=== PATIENT | female | born 1975 | race African-American/Black ===

== ENCOUNTER 2023-06-19 14:19 | Inpatient (IN) | payer OTHER ==
[2023-06-19 16:00] VITALS: BMI 19.0
[2023-06-20] MEDS ORDERED: BENZONATATE 200 MG CAPSULE PO PRN (04:35)
[2023-06-20] MEDS ORDERED: MAGNESIUM HYDROX 2400MG/30ML ORAL SUSPENSION 30 ML CUP PO PRN (04:35)
[2023-06-20] MEDS ORDERED: NALOXONE HCL (KLOXXADO) 8 MG SPRAY NS PRN (04:35)
[2023-06-20] MEDS ORDERED: POLYETHYLENE GLYCOL (HEALTHYLAX) 3350 17 GM PACKET PO PRN (04:35)
[2023-06-20] MEDS ORDERED: NALOXONE HCL 0.4 MG/ML VIAL IM PRN (04:35)
[2023-06-20] MEDS ORDERED: AMMONIUM LACTATE 12% LOTION 225 GM BOTTLE TP PRN (04:35)
[2023-06-20] MEDS ORDERED: IBUPROFEN 400 MG TABLET (FP) PO PRN (04:35)
[2023-06-20] MEDS ORDERED: MAG HYDROX/AL HYDROX/SIMETH 30 ML UNIT-DOSE CUP PO PRN (04:35)
[2023-06-20] MEDS ORDERED: guaiFENesin 600 MG TABLET.ER (FP) PO PRN (04:35)
[2023-06-20] MEDS ORDERED: LOPERAMIDE HCL 2 MG CAPSULE PO PRN (04:35)
[2023-06-20] MEDS ORDERED: COLLOIDAL OATMEAL 1 BAR EACH TP PRN (04:35)
[2023-06-20] MEDS ORDERED: BENZOCAINE/MENTHOL (CHLORASEPTIC ) LOZENGE MM PRN (04:35)
[2023-06-20] MEDS ORDERED: TUBERCULIN PPD 5 TU/0.1ML SYRINGE (IN PATIENT USE ONLY) ID ONE (05:45)
[2023-06-20] MEDS ORDERED: TUBERCULIN PPD 5 TU/0.1ML VIAL ID ONE (07:05)
[2023-06-20] MEDS: PRENATAL VITAMINS W/ FOLIC ACID TABLET (FP) PO SCH (09:58)
[2023-06-20 11:26] LABS: HEMATOCRIT 31.1 % (32.4-45.2); HEMOGLOBIN 10.5 GM/dL (10.7-15.3); MCH 31.9 pg (25.7-33.7); MCHC 33.8 g/dl (32.0-36.0); MEAN CELL VOLUME 94.4 fl (80-96); MEAN PLT VOLUME 7.9 fl (7.5-11.1); PLATELET COUNT 196 10^3/uL (134-434); RBC 3.29 M/mm3 (3.60-5.2); WHITE BLOOD COUNT 3.4 K/mm3 (4.0-10.0)
[2023-06-20 11:48] LABS: POTASSIUM 4.2 mmol/L (3.5-5.1)
[2023-06-20 11:50] LABS: ALBUMIN 2.7 g/dl (3.4-5.0); CALCIUM 8.1 mg/dL (8.5-10.1)
[2023-06-20 11:51] LABS: BLOOD UREA NITROGEN 16.6 mg/dL (7-18)
[2023-06-20 11:53] LABS: CREATININE 0.6 mg/dL (0.55-1.3)
[2023-06-20 11:55] LABS: BILIRUBIN,TOTAL 0.3 mg/dL (0.2-1)
[2023-06-20] MEDS: MELATONIN 5 MG TABLETS PO SCH (21:53)
[2023-06-20] MEDS: THIAMINE HCL 100 MG TABLET (FP) PO SCH (21:53)
[2023-06-21] MEDS: PRENATAL VITAMINS W/ FOLIC ACID TABLET (FP) PO SCH (09:50)
[2023-06-21 12:07] LABS: EPI CELLS >36 /uL (0-25.1); HYALINE CASTS 2 /uL (0-3.1); PH,URINE 5.5 (5.0-8.0); URINE APPEARANCE CLOUDY; URINE BACTERIA 392 /uL (0-1359); URINE BILIRUBIN NEGATIVE (NEGATIVE); URINE COLOR YELLOW; URINE GLUCOSE (UA) NEGATIVE (NEGATIVE); URINE KETONE NEGATIVE (NEGATIVE); URINE LEUK ESTERASE 1+ (NEGATIVE); URINE NITRITE NEGATIVE (NEGATIVE); URINE PROTEIN NEGATIVE (NEGATIVE); URINE RBC 3 /uL (0-23.9); URINE UROBILINOGEN 0.2 mg/dL (0.2-1.0); URINE WBC 84 /uL (0-25.8)
[2023-06-21] MEDS: OLANZapine 10 MG TABLET PO SCH (13:31)
[2023-06-21] MEDS: MELATONIN 5 MG TABLETS PO SCH (21:17)
[2023-06-21] MEDS: THIAMINE HCL 100 MG TABLET (FP) PO SCH (21:17)
[2023-06-22] MEDS: OLANZapine 10 MG TABLET PO SCH (09:58)
[2023-06-22] MEDS: PRENATAL VITAMINS W/ FOLIC ACID TABLET (FP) PO SCH (09:59)
[2023-06-22] MEDS: MELATONIN 5 MG TABLETS PO SCH (21:37)
[2023-06-22] MEDS: THIAMINE HCL 100 MG TABLET (FP) PO SCH (21:37)
[2023-06-22] MEDS: ACETAMINOPHEN 325 MG TABLET (FP) PO PRN (21:37)
[2023-06-23 07:14] VITALS: RESP 18
[2023-06-23] MEDS: ACETAMINOPHEN 325 MG TABLET (FP) PO PRN (08:57)
[2023-06-23] MEDS: OLANZapine 10 MG TABLET PO SCH (10:05)
[2023-06-23] MEDS: PRENATAL VITAMINS W/ FOLIC ACID TABLET (FP) PO SCH (10:05)
[2023-06-23] MEDS: THIAMINE HCL 100 MG TABLET (FP) PO SCH (21:19)
[2023-06-23] MEDS: MELATONIN 5 MG TABLETS PO SCH (21:19)
[2023-06-23] MEDS: IBUPROFEN 600 MG TABLET (FP) PO PRN (22:29)
[2023-06-24] MEDS: OLANZapine 10 MG TABLET PO SCH (09:29)
[2023-06-24] MEDS: PRENATAL VITAMINS W/ FOLIC ACID TABLET (FP) PO SCH (09:29)
[2023-06-24] MEDS: MELATONIN 5 MG TABLETS PO SCH (21:34)
[2023-06-24] MEDS: THIAMINE HCL 100 MG TABLET (FP) PO SCH (21:34)
[2023-06-25] MEDS: PRENATAL VITAMINS W/ FOLIC ACID TABLET (FP) PO SCH (09:26)
[2023-06-25] MEDS: OLANZapine 10 MG TABLET PO SCH (09:26)
[2023-06-25] MEDS: MELATONIN 5 MG TABLETS PO SCH (21:19)
[2023-06-25] MEDS: THIAMINE HCL 100 MG TABLET (FP) PO SCH (21:19)
[2023-06-26] MEDS: IBUPROFEN 600 MG TABLET (FP) PO PRN (08:45)
[2023-06-26] MEDS: OLANZapine 10 MG TABLET PO SCH (09:33)
[2023-06-26] MEDS: PRENATAL VITAMINS W/ FOLIC ACID TABLET (FP) PO SCH (09:33)
[2023-06-26] MEDS: MINERAL OIL/PET HY-PHL TOPICAL OINTMENT 454 GM JAR TP SCH (21:32)
[2023-06-26] MEDS: MELATONIN 5 MG TABLETS PO SCH (21:34)
[2023-06-26] MEDS: THIAMINE HCL 100 MG TABLET (FP) PO SCH (21:34)
[2023-06-27] MEDS: PRENATAL VITAMINS W/ FOLIC ACID TABLET (FP) PO SCH (09:38)
[2023-06-27] MEDS: OLANZapine 10 MG TABLET PO SCH (09:39)
[2023-06-27] MEDS: MINERAL OIL/PET HY-PHL TOPICAL OINTMENT 454 GM JAR TP SCH ×2 (09:39→21:37)
[2023-06-27] MEDS: MELATONIN 5 MG TABLETS PO SCH (21:37)
[2023-06-27] MEDS: THIAMINE HCL 100 MG TABLET (FP) PO SCH (21:37)
[2023-06-28] MEDS: PRENATAL VITAMINS W/ FOLIC ACID TABLET (FP) PO SCH (09:35)
[2023-06-28] MEDS: OLANZapine 10 MG TABLET PO SCH (09:35)
[2023-06-28] MEDS: MINERAL OIL/PET HY-PHL TOPICAL OINTMENT 454 GM JAR TP SCH ×2 (09:36→21:34)
[2023-06-28] MEDS: THIAMINE HCL 100 MG TABLET (FP) PO SCH (21:34)
[2023-06-28] MEDS: MELATONIN 5 MG TABLETS PO SCH (21:34)
[2023-06-29] MEDS: PRENATAL VITAMINS W/ FOLIC ACID TABLET (FP) PO SCH (09:42)
[2023-06-29] MEDS: OLANZapine 10 MG TABLET PO SCH (09:42)
[2023-06-29] MEDS: MINERAL OIL/PET HY-PHL TOPICAL OINTMENT 454 GM JAR TP SCH ×2 (09:43→21:39)
[2023-06-29] MEDS: ACETAMINOPHEN 325 MG TABLET (FP) PO PRN (12:20)
[2023-06-29] MEDS: THIAMINE HCL 100 MG TABLET (FP) PO SCH (21:38)
[2023-06-29] MEDS: MELATONIN 5 MG TABLETS PO SCH (21:38)
[2023-06-30] MEDS: PRENATAL VITAMINS W/ FOLIC ACID TABLET (FP) PO SCH (09:43)
[2023-06-30] MEDS: MINERAL OIL/PET HY-PHL TOPICAL OINTMENT 454 GM JAR TP SCH ×2 (09:43→21:30)
[2023-06-30] MEDS: OLANZapine 10 MG TABLET PO SCH (09:43)
[2023-06-30] MEDS: THIAMINE HCL 100 MG TABLET (FP) PO SCH (21:22)
[2023-06-30] MEDS: MELATONIN 5 MG TABLETS PO SCH (21:22)
[2023-07-01] MEDS: MINERAL OIL/PET HY-PHL TOPICAL OINTMENT 454 GM JAR TP SCH ×2 (10:24→21:50)
[2023-07-01] MEDS: PRENATAL VITAMINS W/ FOLIC ACID TABLET (FP) PO SCH (10:25)
[2023-07-01] MEDS: IBUPROFEN 600 MG TABLET (FP) PO PRN (10:26)
[2023-07-01] MEDS: OLANZapine 10 MG TABLET PO SCH (10:27)
[2023-07-01] MEDS: MELATONIN 5 MG TABLETS PO SCH (21:50)
[2023-07-01] MEDS: THIAMINE HCL 100 MG TABLET (FP) PO SCH (21:50)
[2023-07-02] MEDS: OLANZapine 10 MG TABLET PO SCH (09:55)
[2023-07-02] MEDS: PRENATAL VITAMINS W/ FOLIC ACID TABLET (FP) PO SCH (09:55)
[2023-07-02] MEDS: IBUPROFEN 600 MG TABLET (FP) PO PRN (09:56)
[2023-07-02] MEDS: MINERAL OIL/PET HY-PHL TOPICAL OINTMENT 454 GM JAR TP SCH ×2 (10:02→21:22)
[2023-07-02] MEDS: MELATONIN 5 MG TABLETS PO SCH (21:22)
[2023-07-02] MEDS: THIAMINE HCL 100 MG TABLET (FP) PO SCH (21:22)
[2023-07-03 07:22] VITALS: PULSE 82
[2023-07-03] MEDS: OLANZapine 10 MG TABLET PO SCH (10:29)
[2023-07-03] MEDS: PRENATAL VITAMINS W/ FOLIC ACID TABLET (FP) PO SCH (10:29)
[2023-07-03] MEDS: MINERAL OIL/PET HY-PHL TOPICAL OINTMENT 454 GM JAR TP SCH ×2 (10:30→21:40)
[2023-07-03] MEDS: MELATONIN 5 MG TABLETS PO SCH (21:40)
[2023-07-03] MEDS: THIAMINE HCL 100 MG TABLET (FP) PO SCH (21:40)
[2023-07-04 07:34] VITALS: BP 104/68; TEMP 97.6
[2023-07-04] MEDS: MINERAL OIL/PET HY-PHL TOPICAL OINTMENT 454 GM JAR TP SCH (10:19)
[2023-07-04] MEDS: PRENATAL VITAMINS W/ FOLIC ACID TABLET (FP) PO SCH (10:19)
[2023-07-04] MEDS: OLANZapine 10 MG TABLET PO SCH (10:19)
== END 2023-07-04 11:20 | disposition home or self-care (01) | DRG 772 ==
LOC: YASAS 14:19 → Y5N 06-20 04:06
PROVIDERS: ADMIT Allergy & Immunology; ATTEND Allergy & Immunology
PROC: HZ42ZZZ Group Counseling for Substance Abuse Treatment, Cognitive-Behavioral (ICD-10-PCS; principal; 2023-06-20)
DX: F11.20 Opioid dependence, uncomplicated (principal); F14.20 Cocaine dependence, uncomplicated; F17.210 Nicotine dependence, cigarettes, uncomplicated; F41.9 Anxiety disorder, unspecified; F32.A Depression, unspecified; F25.9 Schizoaffective disorder, unspecified; F06.2 Psychotic disorder with delusions due to known physiological condition; Z21 Asymptomatic human immunodeficiency virus [HIV] infection status; Z62.810 Personal history of physical and sexual abuse in childhood; Z91.51 Personal history of suicidal behavior; Z56.0 Unemployment, unspecified; Z59.00 Homelessness unspecified
CPT/HCPCS: 36415; 80053; 81003; 85027; 86780; 87635; 87811; 93005; 93010